=== PATIENT | female | born 2000 | race Caucasian/White ===

== ENCOUNTER 2019-07-01 20:33 | Emergency (ER) | payer OTHER ==
--- NOTE | 2019-07-01 20:46 | UC ---
Skin Complaint HPI - HPI Summary HPI Summary: 18 yo female presents with RIGHT great toe ?infection. She tells me that she recently cut her toenails and over the last 2 days has noticed pain, redness, and swelling at the nail-skin fold of her right great toe. Has not noticed any drainage. Denies injury. No fevers - History of Current Complaint Time Seen by Provider: 07/01/19 20:46 Stated Complaint: FOOT INFECTION Hx Obtained From: Patient Onset/Duration: Sudden Onset Onset Severity: Mild Current Severity: Mild Pain Intensity: 2 Pain Scale Used: 0-10 Numeric - Allergy/Home Medications Allergies/Adverse Reactions: Allergies Allergy/AdvReac Type Severity Reaction Status Date / Time No Known Allergies Allergy Verified 07/01/19 20:49 PMH/Surg Hx/FS Hx/Imm Hx - Additional Past Medical History Additional PMH: None - Surgical History Surgical History: None - Family History Known Family History: Positive: None - Social History Occupation: Student Lives: Dormitory/Roommates Alcohol Use: None Substance Use Type: None Smoking Status (MU): Never Smoked Tobacco Review of Systems All Other Systems Reviewed And Are Negative: No Constitutional: Positive: Negative Skin: Positive: Other - Right great big toe ?infection Respiratory: Positive: Negative Cardiovascular: Positive: Negative Neurological: Positive: Negative Psychological: Positive: Negative Physical Exam - Summary Physical Exam Summary: GENERAL: NAD. WDWN. No pain distress. SKIN: RIGHT GREAT TOE: Lateral aspect of nail-skin fold with mild erythema, edema, and TTP. No drainage, streaking, or abscess formation. CHEST: No accessory muscle use. Breathing comfortably and in no distress. CV: Pulses intact. Cap refill <2seconds NEURO: Alert. PSYCH: Age appropriate behavior. Triage Information Reviewed: Yes Vital Signs: Vital Signs: Temp Pulse Resp BP Pulse Ox 99.1 F 82 18 123/75 100 07/01/19 20:45 07/01/19 20:45 07/01/19 20:45 07/01/19 20:45 07/01/19 20:45 Vital Signs Reviewed: Yes Course/Dx - Course Course Of Treatment: Paronychia. Advised warm salt water soaks and will rx for keflex - Diagnoses Provider Diagnosis: Paronychia Discharge ED - Sign-Out/Discharge Documenting (check all that apply): Patient Departure All imaging exams completed and their final reports reviewed: No Studies - Discharge Plan Condition: Stable Disposition: HOME Prescriptions: Cephalexin CAP* [Keflex CAP*] 500 mg PO BID #10 cap Patient Education Materials: Paronychia (ED) Referrals: No Primary Care Phys,NOPCP [Primary Care Provider] - Additional Instructions: If you develop a fever, shortness of breath, chest pain, new or worsening symptoms - please call your PCP or go to the ED immediately. Do warm epsom salt soaks 20minutes a few times a day Cover with a band-aid when wearing shoes to decrease friction against the shoe/ sock Take the antibiotic as directed - Billing Disposition and Condition Condition: STABLE Disposition: Home
[2019-07-01 20:49] VITALS: BP 123/75
[2019-07-01] MEDS ORDERED: Cephalexin CAP* 500 MG PO ONE (20:53)
== END 2019-07-01 21:04 | disposition home or self-care (01) ==
LOC: UCEAST 20:33
DX: L03.031 Cellulitis of right toe (principal)
CPT/HCPCS: 99202; A9270-GY; G0463

== ENCOUNTER 2019-10-07 19:30 | Emergency (ER) | payer OTHER ==
[2019-10-07 19:41] VITALS: BP 118/65
--- NOTE | 2019-10-07 20:08 | UC ---
Skin Complaint HPI - HPI Summary HPI Summary: awoke today with erythemic swollen, painful L great toe, no known injury, no new shoes, no treatment thus far - History of Current Complaint Chief Complaint: UCSkin Time Seen by Provider: 10/07/19 19:34 Stated Complaint: TOE PAIN Hx Obtained From: Patient Hx Last Menstrual Period: ?: No Onset/Duration: Sudden Onset Timing: Constant Onset Severity: Mild Current Severity: Mild Pain Intensity: 3 Location: Discrete - L great toe Character: Redness, Painful Aggravating Factor(s): Touch Alleviating Factor(s): Nothing Associated Signs & Symptoms: Positive: Negative. Negative: Fever, Chills, Drainage - Allergy/Home Medications Allergies/Adverse Reactions: Allergies Allergy/AdvReac Type Severity Reaction Status Date / Time No Known Allergies Allergy Verified 07/01/19 20:49 Home Medications: Home Medications Cephalexin CAP* [Keflex CAP*] 500 mg PO TID #20 cap 10/07/19 [Rx] PMH/Surg Hx/FS Hx/Imm Hx Previously Healthy: Yes - Surgical History Surgical History: None Surgery Procedure, Year, and Place: 2011 spinal - Family History Known Family History: Positive: None - Social History Occupation: Student Lives: Dormitory/Roommates Alcohol Use: None Substance Use Type: None Smoking Status (MU): Never Smoked Tobacco Review of Systems All Other Systems Reviewed And Are Negative: Yes Constitutional: Positive: Negative Respiratory: Positive: Negative Cardiovascular: Positive: Negative Motor: Positive: Negative. Negative: Decreased ROM Musculoskeletal: Positive: Negative Neurological/Mental Status: Positive: Negative Psychological: Positive: Negative Is Patient Immunocompromised?: No Physical Exam Triage Information Reviewed: Yes Appearance: Well-Appearing, No Pain Distress, Well-Nourished Vital Signs: Initial Vital Signs Temp 98.0 F 10/07/19 19:35 Pulse 90 10/07/19 19:35 Resp 20 10/07/19 19:35 BP 118/65 10/07/19 19:35 Pulse Ox 98 10/07/19 19:35 Vital Signs Reviewed: Yes Respiratory Exam: Normal Respiratory: Positive: Lungs clear Cardiovascular Exam: Normal Cardiovascular: Positive: RRR Musculoskeletal Exam: Normal Musculoskeletal: Positive: Strength Intact, ROM Intact Neurological Exam: Normal Psychological Exam: Normal Skin Exam: Other - erythemic swollen, tender medial cuticle area R great toe, no drainage, no fluctuant area. nails cut well. no bruising or joint deformity Course/Dx - Differential Diagnoses - Skin Complaint Differential Diagnoses: Abscess, Cellulitis, Other - paronychia - Diagnoses Provider Diagnosis: Paronychia Discharge ED - Sign-Out/Discharge Documenting (check all that apply): Patient Departure All imaging exams completed and their final reports reviewed: No Studies - Discharge Plan Condition: Good Disposition: HOME Prescriptions: Cephalexin CAP* [Keflex CAP*] 500 mg PO TID #20 cap Patient Education Materials: Paronychia (ED) Referrals: No Primary Care Phys,NOPCP [Primary Care Provider] - Additional Instructions: wash skin around toe with Hibiclens solution everyday for 5 days take antibiotic (Keflex) as directed Ibuprofen 600mg every 6 hours as needed for pain follow-up with [facility] if no better in 7 days - Billing Disposition and Condition Condition: GOOD Disposition: Home
[2019-10-07] MEDS ORDERED: Cephalexin CAP* 500 MG PO ONE (20:09)
== END 2019-10-07 20:19 | disposition home or self-care (01) ==
LOC: UCEAST 19:30
DX: L03.032 Cellulitis of left toe (principal); L03.031 Cellulitis of right toe
CPT/HCPCS: 99212; A9270-GY; G0463